=== PATIENT | female | born 1960 | race Caucasian/White ===

== ENCOUNTER → 2023-04-23 08:27 | Outpatient (BNVA) | payer MEDICAID, SELFPAY | PROVIDERS: PCP Family Medicine; Referring Provider Family Medicine; Visit Provider Psychiatry & Neurology Neurology | DX: R55 Syncope and collapse (principal); R09.89 Other specified symptoms and signs involving the circulatory and respiratory systems; Z98.890 Other specified postprocedural states | CPT/HCPCS: 99203 ==

== ENCOUNTER → 2023-05-16 08:03 | Outpatient (BNVA) | payer MEDICAID, SELFPAY | PROVIDERS: PCP Family Medicine; Referring Provider Psychiatry & Neurology Neurology; Visit Provider Psychiatry & Neurology Neurology | DX: R55 Syncope and collapse (principal) | CPT/HCPCS: 95813 ==

== ENCOUNTER 2023-05-25 10:39 | Outpatient (CLI) | payer MEDICAID, SELFPAY ==
[2023-05-25 11:30] LABS: Basophils # 0.1 10^3/uL (0.0-0.1); Basophils % 0.7 %; Eosinophils # 0.2 10^3/uL (0.0-0.8); Eosinophils % 2.3 %; Hematocrit 51.1 % (37.0-47.0); Hemoglobin 16.8 g/dL (11.5-15.3); Lymphocytes # 2.9 10^3/uL (0.8-4.8); Lymphocytes % 40.3 %; Mean Corpuscular HGB Conc 32.9 g/dL (30.0-36.0); Mean Corpuscular Hemoglobin 30.8 pg (28.0-34.0); Mean Corpuscular Volume 93.6 fl (81-99); Mean Platelet Volume 9.1 fL (7.4-10.4); Monocytes # 0.6 10^3/uL (0.2-0.9); Monocytes % 7.6 %; Neutrophils # 3.54 10^3/uL (1.8-7.7); Nucleated Red Blood Cells % 0 %; Platelet Count 259 10^3/cmm (130-400); Red Blood Count 5.46 10^6/uL (4.1-5.3); Red Cell Distribution Width 13.2 % (12.1-15.1); White Blood Count 7.2 10^3/uL (4.0-10.0)
[2023-05-25 12:14] LABS: 25 Hydroxy Vitamin D 43 ng/mL (30-100); Alanine Aminotransferase 8 U/L (0-33); Albumin Level 4.3 g/dL (3.5-5.2); Alkaline Phosphatase 102 U/L (35-105); Anion Gap 13.5 (5-19); Aspartate Amino Transferase 19 U/L (0-32); Blood Urea Nitrogen 15 mg/dL (8-23); Calcium 10.4 mg/dL (8.5-10.5); Carbon Dioxide 30 mmol/L (22-29); Chloride 102 mmol/L (98-107); Globulin 2.7 g/dL (1.3-4.6); Glomerular Filtration Rate 100.6 mL/min (90-130); Glucose 102 mg/dL (65-115); Magnesium 1.8 mg/dL (1.7-2.3); Osmolality Calculated 293 mOsm/kg (285-295); Potassium 4.5 mmol/L (3.5-5.1); Sodium 141 mmol/L (136-145); Thyroid Stimulating Hormone 0.86 uIU/mL (0.27-4.20); Total Bilirubin 0.6 mg/dL (0.15-1.2)
[2023-05-25 12:37] LABS: T3 Free 3.3 PG/ML (2.0-4.4)
[2023-05-25 12:54] LABS: Valproic Acid Level 114.4 ug/mL (50-100)
[2023-05-25 13:30] LABS: Folate Level > 20.0 ng/mL (4.8-37.3)
[2023-05-29 11:09] LABS: Methylmalonic Acid 609 nmol/L (87-318)
[2023-06-01 14:59] LABS: Vitamin B6 Plasma 25.5 ng/mL (2.1-21.7)
[2023-06-01 20:38] LABS: Nicotinamide 31 ng/mL; Nicotinic Acid <20 ng/mL
[2023-07-25 16:27] LABS: Biotin (Vitamin B7) 1918.7
== END 2023-05-25 10:40 | disposition home or self-care (01) ==
PROVIDERS: PCP Family Medicine; Visit Provider Psychiatry & Neurology Neurology
DX: R09.89 Other specified symptoms and signs involving the circulatory and respiratory systems (principal); R29.6 Repeated falls; R40.0 Somnolence; R55 Syncope and collapse
CPT/HCPCS: 36415; 80053; 80164; 82306; 82746; 83735; 83921; 84207; 84439; 84443; 84481; 84591; 85025

== ENCOUNTER → 2023-05-29 14:18 | Outpatient (BNVA) | payer MEDICAID, SELFPAY | PROVIDERS: PCP Family Medicine; Visit Provider Internal Medicine Cardiovascular Disease | DX: R55 Syncope and collapse (principal); R40.0 Somnolence; R03.0 Elevated blood-pressure reading, without diagnosis of hypertension; F17.200 Nicotine dependence, unspecified, uncomplicated | CPT/HCPCS: 99204 ==

== ENCOUNTER 2023-06-14 11:10 | Outpatient (CLI) | payer MEDICAID, SELFPAY | END 2023-06-14 11:11 | disposition home or self-care (01) | LOC: RAD 11:12 | PROVIDERS: PCP Family Medicine; Visit Provider Specialist | DX: R55 Syncope and collapse (principal); R09.89 Other specified symptoms and signs involving the circulatory and respiratory systems; R40.0 Somnolence; R29.6 Repeated falls; R94.01 Abnormal electroencephalogram [EEG]; Z91.81 History of falling; Z98.890 Other specified postprocedural states | CPT/HCPCS: 36415; 80076; 80164; 82140; 85025; 95812; 95816; 99213 ==

== ENCOUNTER 2023-06-22 09:45 | Outpatient (CLI) | payer MEDICAID, SELFPAY ==
[2023-06-22 11:09] LABS: Valproic Acid Level 55.1 ug/mL (50-100)
[2023-06-26 11:54] LABS: Vitamin B6 Plasma 22.4 ng/mL (2.1-21.7)
== END 2023-06-22 09:46 | disposition home or self-care (01) ==
PROVIDERS: PCP Family Medicine; Visit Provider Psychiatry & Neurology Neurology
DX: R03.0 Elevated blood-pressure reading, without diagnosis of hypertension (principal); R09.89 Other specified symptoms and signs involving the circulatory and respiratory systems; R29.6 Repeated falls; R40.0 Somnolence; R55 Syncope and collapse; G40.219 Localization-related (focal) (partial) symptomatic epilepsy and epileptic syndromes with complex partial seizures, intractable, without status epilepticus
CPT/HCPCS: 36415; 80164; 84207

== ENCOUNTER 2023-07-19 10:52 | Outpatient (CLI) | payer MEDICAID, SELFPAY ==
--- NOTE | 2023-07-19 11:02 | MR_ITS ---
WS: [id number] MRI BRAIN WITH AND WITHOUT CONTRAST HISTORY: SEIZURES/SYNCOPE COLLAPSE COMPARISON: None available. TECHNIQUE: Multiplanar imaging performed through the brain with MultiHance 10 ml's IV. No acute infarcts are seen. Zacarias-white matter differentiation is well preserved. Volume loss and smal l vessel ischemic disease. No prior infarct. No lacunar infarcts. Mild bilateral hippocampal atrophy is symmetric. No susceptibility artifacts or prior lacunar infarcts. Ventricles and extra-axial spaces are normal. Clivus and pituitary gland are normal. Visualized posterior fossa and brainstem are also normal. Postcontrast images are negative for masses or vascular malformations. Dural venous sinuses are normal. Paranasal sinuses: Well aerated with no significant disease. Mastoid air cells: Normal. Calvarium and scalp: Normal. IMPRESSION: 1. Mild cerebral atrophy with mild bilateral hippocampal formation atrophy. 2. No acute diffusion abnormality and no enhancing mass. 3. Mild small vessel ischemic disease.
[2023-07-19] MEDS: gadobenate dimeglumine 20 mL vial IV (12:14)
== END 2023-07-19 10:53 | disposition home or self-care (01) ==
LOC: RAD 10:55
PROVIDERS: PCP Family Medicine; Visit Provider Specialist
DX: G40.909 Epilepsy, unspecified, not intractable, without status epilepticus (principal); R55 Syncope and collapse
CPT/HCPCS: 70553; A9577

== ENCOUNTER → 2023-08-09 11:53 | Outpatient (BNVA) | payer MEDICAID, SELFPAY | PROVIDERS: PCP Family Medicine; Visit Provider Psychiatry & Neurology Neurology | DX: G40.219 Localization-related (focal) (partial) symptomatic epilepsy and epileptic syndromes with complex partial seizures, intractable, without status epilepticus (principal); R55 Syncope and collapse | CPT/HCPCS: 99212 ==

== ENCOUNTER 2023-08-14 08:12 | Outpatient (CLI) | payer MEDICAID, SELFPAY ==
[2023-08-14 08:57] LABS: Ammonia 19 umol/L (11-51)
[2023-08-14 08:58] LABS: Valproic Acid Level 11.8 ug/mL (50-100)
== END 2023-08-14 08:13 | disposition home or self-care (01) ==
LOC: LAB 08:15
PROVIDERS: PCP Internal Medicine; Visit Provider Psychiatry & Neurology Neurology
DX: Z79.899 Other long term (current) drug therapy (principal)
CPT/HCPCS: 36415; 80164; 82140

== ENCOUNTER 2023-08-22 08:57 | Outpatient (CLI) | payer MEDICAID, SELFPAY ==
[2023-08-22 09:39] LABS: Valproic Acid Level 31.3 ug/mL (50-100)
== END 2023-08-22 08:58 | disposition home or self-care (01) ==
PROVIDERS: PCP Internal Medicine; Visit Provider Psychiatry & Neurology Neurology
DX: G40.219 Localization-related (focal) (partial) symptomatic epilepsy and epileptic syndromes with complex partial seizures, intractable, without status epilepticus (principal); R55 Syncope and collapse
CPT/HCPCS: 36415; 80164

== ENCOUNTER 2023-09-27 11:57 | Outpatient (CLI) | payer MEDICAID, SELFPAY ==
[2023-09-27 12:50] LABS: Valproic Acid Level 26.8 ug/mL (50-100)
== END 2023-09-27 11:58 | disposition home or self-care (01) ==
LOC: LAB 11:57
PROVIDERS: PCP Internal Medicine; Visit Provider Psychiatry & Neurology Neurology
DX: G40.219 Localization-related (focal) (partial) symptomatic epilepsy and epileptic syndromes with complex partial seizures, intractable, without status epilepticus (principal)
CPT/HCPCS: 80164

== ENCOUNTER → 2023-11-08 11:17 | Outpatient (BNVA) | payer MEDICAID, SELFPAY | PROVIDERS: PCP Internal Medicine; Visit Provider Psychiatry & Neurology Neurology | DX: G40.219 Localization-related (focal) (partial) symptomatic epilepsy and epileptic syndromes with complex partial seizures, intractable, without status epilepticus (principal); R55 Syncope and collapse; R94.01 Abnormal electroencephalogram [EEG] | CPT/HCPCS: 99212 ==

== ENCOUNTER 2023-11-26 08:40 | Outpatient (CLI) | payer MEDICAID, SELFPAY ==
[2023-11-29 13:14] LABS: Oxcarbazepine Metabolite 2.6 mcg/mL (8.0-35.0)
== END 2023-11-26 08:41 | disposition home or self-care (01) ==
LOC: LAB 08:40
PROVIDERS: PCP Internal Medicine; Visit Provider Psychiatry & Neurology Neurology
DX: R55 Syncope and collapse (principal); R29.6 Repeated falls
CPT/HCPCS: 36415; 80183

== ENCOUNTER 2023-12-11 10:32 | Outpatient (CLI) | payer MEDICAID, SELFPAY ==
[2023-12-14 16:19] LABS: Oxcarbazepine Metabolite 15.1 mcg/mL (8.0-35.0)
== END 2023-12-11 10:33 | disposition home or self-care (01) ==
LOC: LAB 10:35
PROVIDERS: PCP Internal Medicine; Visit Provider Psychiatry & Neurology Neurology
DX: G40.219 Localization-related (focal) (partial) symptomatic epilepsy and epileptic syndromes with complex partial seizures, intractable, without status epilepticus (principal); R55 Syncope and collapse; R03.0 Elevated blood-pressure reading, without diagnosis of hypertension
CPT/HCPCS: 36415; 80183; 99213

== ENCOUNTER 2024-02-28 08:53 | Emergency (ER) | payer MEDICAID, SELFPAY ==
--- NOTE | 2024-02-28 09:13 | XR_ITS ---
WS: [id number] XR cervical spine 3V* [id number] REASON FOR EXAM: trauma FINDINGS: Exaggerated lordosis of the cervical spine. No focal vertebral body abnormality. Normal odontoid. Mild narrowing of the intervertebral disc spaces C4-C7 with moderate anterior osteophytosis. No spondylolisthesis. Facet joints are in normal alignment. XR/XR cervical spine 3V* [id number] IMPRESSION: Significant degenerative spondylosis of the lower cervical spine. No acute abnormality identified.
--- NOTE | 2024-02-28 09:13 | CTR_ITS ---
PROCEDURE INFORMATION: Exam: CT Head Without Contrast Exam date and time: 02/28/2024 9:46 AM Age: 63 years old Clinical indication: Injury or trauma; Blunt trauma (contusions or hematomas); Without loss of consciousness; Injury details: Fall x today hitting posterior head TECHNIQUE: Imaging protocol: Computed tomography of the head without contrast. Radiation optimization: All CT scans at this facility use at least one of these dose optimization techniques: automated exposure control; mA and/or kV adjustment per patient size (includes targeted exams where dose is matched to clinical indication); or iterative reconstruction. COMPARISON: MR head wo/w con [id number] 07/19/2023 11:23 AM RADIATION DOSE METRICS: Total DLP (mGy-cm): 1060.8 FINDINGS: Brain: Normal. No hemorrhage. Unremarkable white matter. No mass effect or acute infarct. Cerebral ventricles: No ventriculomegaly. No midline shift. Paranasal sinuses: Visualized sinuses are unremarkable. No fluid levels. Mastoid air cells: Visualized mastoid air cells are well aerated. Bones: See Soft tissues finding. Soft tissues: There is a scalp hematoma in the left parieto-occipital area but there is no evidence of underlying skull fracture. CT/CT head wo con* [id number] IMPRESSION: Scalp hematoma. Normal brain and skull.
[2024-02-28 09:17] VITALS: BP 131/81; PULSE 88; RESP 18; TEMP 36.6; O2SAT 90; BMI 19.9
[2024-02-28 09:29] VITALS: BP 161/79; PULSE 88; O2SAT 93
[2024-02-28 09:50] LABS: Basophils # 0.1 10^3/uL (0.0-0.1); Basophils % 0.5 %; Eosinophils # 0.2 10^3/uL (0.0-0.8); Eosinophils % 1.9 %; Hematocrit 52.1 % (36-47); Lymphocytes # 1.7 10^3/uL (0.8-4.8); Lymphocytes % 18.7 %; Mean Corpuscular Hemoglobin 32.4 pg (27-33); Mean Corpuscular Volume 98.1 fl (85-98); Mean Platelet Volume 8.1 fL (7.4-10.4); Monocytes # 0.7 10^3/uL (0.2-0.9); Monocytes % 7.2 %; Neutrophils # 6.59 10^3/uL (1.8-7.7); Neutrophils % 71.4 %; Nucleated Red Blood Cells % 0 %; Platelet Count 249 10^3/cmm (157-399); Red Blood Count 5.31 10^6/uL (3.85-5.65); Red Cell Distribution Width 12.9 % (12.1-15.1); White Blood Count 9.25 10^3/uL (3.29-11.43)
[2024-02-28 10:07] LABS: Alanine Aminotransferase 14 U/L (0-33); Albumin Level 3.8 g/dL (3.5-5.2); Alkaline Phosphatase 126 U/L (35-105); Anion Gap 11.2 (5-19); Aspartate Amino Transferase 21 U/L (0-32); Blood Urea Nitrogen 10 mg/dL (8-23); Calcium 9.5 mg/dL (8.5-10.5); Carbon Dioxide 32 mmol/L (22-29); Chloride 99 mmol/L (98-107); Creatinine Clr Calc Pharmacy 68.4975; Globulin 3.5 g/dL (1.3-4.6); Glomerular Filtration Rate 100.6 mL/min (90-130); Glucose 110 mg/dL (65-115); Osmolality Calculated 286 mOsm/kg (285-295); Potassium 4.2 mmol/L (3.5-5.1); Sodium 138 mmol/L (136-145); Total Bilirubin 0.4 mg/dL (0.15-1.2); Total Protein 7.3 g/dL (6.6-8.7)
--- NOTE | 2024-02-28 11:04 | ED_ITS ---
HPI - Fall 2 General: Chief Complaint: Fall Stated Complaint: fall, hit head Time Seen by Provider: 02/28/24 09:12 Source: patient Mode of arrival: ambulatory History of Present Illness: 63-year-old female presents emergency ro om after a fall at home. She is multiple falls in the past with history of COPD. At 1 point remotely she had an intracranial bleed. She is not on any anticoagulants. She has had multiple falls she seen neurology they did positive the potential that she may have seizures although she does not think that she does. Today was involved similar to what she has had before essentially she will has what sounds like a syncopal episode and collapse. She been seen for this multiple times before there is no loss of consciousness today she denies any nausea vomiting since this happened. complaint: fall Fall from: standing Fall witnessed: no Place fall occurred: home Loss of consciousness: None Prolonged down time: no Symptoms prior to fall: none Location of injury: head Associated symptoms-after fall: Denies abdominal pain, chest pain or neck pain Review of Systems 2 Const: Denies: fever(s) or chills Card: Denies: chest pain Resp: Denies: dyspnea GI: Denies: abdominal pain : Denies: dysuria, urinary frequency or urinary urgency Musc: Denies: neck pain or back pain Skin/Breast: Denies: rash PFSH ED 2 PFSH: Social History Smoking and tobacco/nicotine status: current every day tobacco/nicotine user Alcohol intake: never Substance/Drug Use: never Physical Exam 2 Const: COMMON NORMALS: no acute distress GENERAL APPEARANCE: cooperative and comfortable ORIENTATION/CONSCIOUSNESS: Yes awake, Yes oriented to person, Yes oriented to place and Yes oriented to time HENMT: COMMON NORMALS: normocephalic and hearing grossly normal bilaterally HEAD & SCALP: normocephalic OTHER: Scalp hematoma to the left of the midline the superior portion of the occiput. No skin breakdown ulceration or laceration no bleeding Resp: COMMON NORMALS: normal respiratory effort, No retractions, No use of accessory muscles and clear to auscultation bilaterally AUSCULTATION: clear to auscultation bilaterally Cardio: COMMON NORMALS: regular rate, regular rhythm and No murmurs present (Cardio) RATE: regular rate RHYTHM: regular rhythm GI: COMMON NORMALS: Soft to palpation and No hepatosplenomegaly present A USCULTATION: Yes normoactive bowel sounds PALPATION: Yes Soft to palpation, No Tenderness to palpation present (GI), No Guarding due to palpation present (GI) and Yes No hepatosplenomegaly present Extremity: COMMON NORMALS: normal to inspection, capillary refill normal, no clubbing, cyanosis or edema, no calf tenderness and no pedal edema Neuro: SENSORIUM/ORIENTATION: Yes oriented to person, Yes oriented to place and Yes oriented to time Skin: COMMON NORMALS: no rashes or lesions noted GENERAL SKIN EXAM: no rashes or lesions noted Course 2 Vital Signs: Vital signs: Vital Signs Temperature 97.9 F 02/28/24 09:17 Pulse Rate 88 02/28/24 09:29 Respiratory Rate 18 02/28/24 09:17 Blood Pressure 161/79 02/28/24 09:29 Pulse Oximetry 93 02/28/24 09:29 Oxygen Delivery Me thod Room Air 02/28/24 09:17 MDM - Fall Medical Decision Making Frequent falls. CT head and neck x-rays were negative. Discharge patient home labs reviewed. Medicated with 2 patient she had dozed off and her sats were in the 87 to 88% when she wakes she is alert oriented answers questions appropriately and her sat improved to the low 90s. Suspect that with her COPD she may have intermittent episodes with hypoxia with activity that may worsen her fall risk. Encouraged her to follow-up with primary care doctor to evaluate. Medical Records I reviewed the patient's medical records. Lab Data I reviewed the patient's lab results. 02/28/24 09:43 02/28/24 09:43 Radiology Impressions Cervical Spine X-Ray 02/28/24 09:13 IMPRESSION: Significant degenerative spondylosis of the lower cervical spine. No acute abnormality identified. Head CT 02/28/24 09:13 IMPRESSION: Scalp hematoma. Normal brain and skull. Laboratory Results WBC 9.25 10^3/uL (3.29-11.43) 02/28/24 09:43 RBC 5.31 10^6/uL (3.85-5.65) 02/28/24 09:43 Hgb 17.20 g/dL (11.27-16.99) H 02/28/24 09:43 Hct 52.1 % (36-47) H 02/28/24 09:43 MCV 98.1 fl (85-98) H 02/28/24 09:43 MCH 32.4 pg (27-33) 02/28/24 09:43 MCHC 33.0 g/dL (30-55) 02/28/24 09:43 RDW 12.9 % (12.1-15.1) 02/28/24 09:43 Plt Count 249 10^3/cmm (157-399) 02/28/24 09:43 MPV 8.1 fL (7.4-10.4) 02/28/24 09:43 Neut % (Auto) 71.4 % 02/28/24 09:43 Lymph % (Auto) 18.7 % 02/28/24 09:43 Buchanan % (Auto) 7.2 % 02/28/24 09:43 Eos % (Auto) 1.9 % 02/28/24 09:43 Baso % (Auto) 0.5 % 02/28/24 09:43 Neut # (Auto) 6.59 10^3/uL (1.8-7.7) 02/28/24 09:43 Lymph # (Auto) 1.7 10^3/uL (0.8-4.8) 02/28/24 09:43 Buchanan # (Auto) 0.7 10^3/uL (0.2-0.9) 02/28/24 09:43 Eos # (Auto) 0.2 10^3/uL (0.0-0.8) 02/28/24 09:43 Baso # (Auto) 0.1 10^3/uL (0.0-0.1) 02/28/24 09:43 Nucleated RBC % (auto) 0 % 02/28/24 09:43 Nucleated RBCs # 0.0 /100WBC 02/28/24 09:43 Sodium 138 mmol/L (136-145) 02/28/24 09:43 Potassium 4.2 mmol/L (3.5-5.1) 02/28/24 09:43 Chloride 99 mmol/L (98-107) 02/28/24 09:43 Carbon Dioxide 32 mmol/L (22-29) H 02/28/24 09:43 Anion Gap 11.2 (5-19) 02/28/24 09:43 BUN 10 mg/dL (8-23) 02/28/24 09:43 Creatinine 0.6 mg/dL (0.5-0.9) 02/28/24 09:43 GFR Calculation 100.6 mL/min (90-130) 02/28/24 09:43 Glucose 110 mg/dL (65-115) 02/28/24 09:43 Calculated Osmolality 286 mOsm/kg (285-295) 02/28/24 09:43 Calcium 9.5 mg/dL (8.5-10.5) 02/28/24 09:43 Total Bilirubin 0.4 mg/dL (0.15-1.2) 02/28/24 09:43 AST 21 U/L (0-32) 02/28/24 09:43 ALT 14 U/L (0-33) 02/28/24 09:43 Alkaline Phosphatase 126 U/L (35-105) H 02/28/24 09:43 Total Protein 7.3 g/dL (6.6-8.7) 02/28/24 09:43 Albumin 3.8 g/dL (3.5-5.2) 02/28/24 09:43 Globulin 3.5 g/dL (1.3-4.6) 02/28/24 09:43 All radiology interpretation(s) finalized by discharge Discharge Plan Discharge Patient Disposition: Home Clinical Impression: Falling episodes, Daytime sleepiness, Closed head injury Condition: Stable Prescriptions: No Action duloxetine 60 mg capsule,delayed release(DR/EC) 60 mg PO BID terbinafine HCl 250 mg tablet 250 mg PO DAILY cyanocobalamin (vitamin B-12) 1,000 mcg/mL solution 1,000 mcg IM .monthly Qty: 10 6RF Rx Instructions: ON THE celecoxib 400 mg capsule 400 mg PO DAILY armodafinil 50 mg tablet 50 mg PO QAM buprenorphine-naloxone 8-2 mg film 1 film sublingual TID PRN (Reason: UNKNOWN) 28 mg iron- 800 mcg Tablet 1 tab PO DAILY Oxtellar XR 150 mg tablet extended release 24 hr 450 mg PO BEDTIME Discharge Orders: Discharge ED (Routine); Ordered 02/28/24 Ordered By: Kendrick Castellon Referrals: Edil Kerr MD [Primary Care Provider] - Discharge Diet: Usual diet Discharge Activity: Increase activity as tolerated Patient Instructions: Opioid Safety, Pain Management Activity Restrictions/Additional Instructions: Thank you for choosing [facility] for your healthcare needs today. Please realize this is an emergency room and that we are providing you with a medical screening exam and this may not be complete and all inclusive of all the testing and or work up that you may need to determine your ailment or severity of your illness. It is very important that you follow up as instructed or that you return to the Emergency Department should you have concerns or if your condition changes or worsens in any way. Follow-up with your doctor in the office you may need to be evaluated for long- term oxygen use due to COPD. Coding Level of Care Code ED Business Planning Manager for Domenic Murphy
== END 2024-02-28 11:29 | disposition home or self-care (01) ==
PROVIDERS: Emergency Provider Family Medicine; PCP Internal Medicine
DX: S00.03XA Contusion of scalp, initial encounter (principal); G47.8 Other sleep disorders; R29.6 Repeated falls; Z72.0 Tobacco use; J44.9 Chronic obstructive pulmonary disease, unspecified; W19.XXXA Unspecified fall, initial encounter
CPT/HCPCS: 36415; 70450; 72040; 80053; 85025; 99284

== ENCOUNTER → 2024-04-10 11:06 | Outpatient (BNVA) | payer MEDICARE, MEDICAID, SELFPAY | PROVIDERS: PCP Internal Medicine; Visit Provider Psychiatry & Neurology Neurology | DX: G40.219 Localization-related (focal) (partial) symptomatic epilepsy and epileptic syndromes with complex partial seizures, intractable, without status epilepticus (principal); R94.01 Abnormal electroencephalogram [EEG]; Z87.442 Personal history of urinary calculi; F17.210 Nicotine dependence, cigarettes, uncomplicated; F32.A Depression, unspecified; R40.0 Somnolence | CPT/HCPCS: 99212 ==

== ENCOUNTER → 2024-06-19 09:15 | Outpatient (BNVA) | payer MEDICARE, MEDICAID, SELFPAY | PROVIDERS: PCP Internal Medicine; Visit Provider Psychiatry & Neurology Neurology | DX: R55 Syncope and collapse (principal); R94.01 Abnormal electroencephalogram [EEG]; G40.219 Localization-related (focal) (partial) symptomatic epilepsy and epileptic syndromes with complex partial seizures, intractable, without status epilepticus; Z87.442 Personal history of urinary calculi; F32.A Depression, unspecified; R29.6 Repeated falls; J44.9 Chronic obstructive pulmonary disease, unspecified; F17.200 Nicotine dependence, unspecified, uncomplicated; Z98.890 Other specified postprocedural states; R09.89 Other specified symptoms and signs involving the circulatory and respiratory systems | CPT/HCPCS: 95812; 99212; 99213 ==

== ENCOUNTER 2024-09-18 06:30 | Outpatient (CLI) | payer MEDICARE, MEDICAID, SELFPAY | END 2024-09-18 06:31 | LOC: SOT 09-19 07:41 | PROVIDERS: Visit Provider Orthopaedic Surgery | DX: Z46.89 Encounter for fitting and adjustment of other specified devices (principal); S62.102D Fracture of unspecified carpal bone, left wrist, subsequent encounter for fracture with routine healing; X58.XXXD Exposure to other specified factors, subsequent encounter | CPT/HCPCS: 99203; L3984 ==

== ENCOUNTER → 2024-09-18 15:01 | Outpatient (BNVA) | payer MEDICARE, MEDICAID, SELFPAY | PROVIDERS: PCP Internal Medicine; Visit Provider Orthopaedic Surgery | DX: S62.102A Fracture of unspecified carpal bone, left wrist, initial encounter for closed fracture (principal); X58.XXXA Exposure to other specified factors, initial encounter | CPT/HCPCS: 73110 ==

== ENCOUNTER → 2025-03-04 12:31 | Outpatient (BNVA) | payer MEDICARE, MEDICAID, SELFPAY | PROVIDERS: PCP Internal Medicine; Visit Provider Internal Medicine Cardiovascular Disease | DX: R55 Syncope and collapse (principal); R03.0 Elevated blood-pressure reading, without diagnosis of hypertension; R40.0 Somnolence; R01.1 Cardiac murmur, unspecified; R07.9 Chest pain, unspecified | CPT/HCPCS: 93005; 99214 ==

== ENCOUNTER 2025-04-28 13:48 | Outpatient (CLI) | payer OTHER, MEDICAID, SELFPAY ==
--- NOTE | 2025-04-28 13:58 | XR_ITS ---
WS: [id number] SCREENING DEXA SCAN Ampulse CLINICAL INFORMATION: ASYMPTOMATIC MENOPAUSAL STATE COMPARISON: None. FINDINGS: The L1-L4 bone mineral density measures 0.952 g/cm2. This corresponds to a T score score of -1.9 and Z score of 0.5. Left femoral neck bone mineral density measures 0.680 g/cm2. This corresponds to a T score of -2.6 and Z score of -0.8. Right femoral neck bone mineral density measures 0.715 g/cm2. This corresponds to a T score -2.3of and Z score of -0.5. Mean femoral neck bone mineral density measures 0.698 g/cm2. This corresponds to a T score of -2.5 and Z score of -0.6. XR/XR DEXA axial skeleton* [id number] IMPRESSION: Osteopenia lumbar spine. Osteoporosis femoral necks. Patient's FRAX calculated 10 year probability for major osteoporotic fracture i s 12.9% and osteoporotic hip fracture is 4.9%.
== END 2025-04-28 13:49 | disposition home or self-care (01) ==
LOC: RAD 13:50
PROVIDERS: PCP Internal Medicine; Visit Provider Internal Medicine
DX: Z78.0 Asymptomatic menopausal state (principal); M85.88 Other specified disorders of bone density and structure, other site; M81.0 Age-related osteoporosis without current pathological fracture
CPT/HCPCS: 77080

== ENCOUNTER 2025-05-20 12:02 | Outpatient (CLI) | payer OTHER, MEDICAID, SELFPAY ==
--- NOTE | 2025-05-20 12:00 | USCV_ITS ---
Rahda Almaraz Age: 65 Gender: F : 1960 Exam Date: 05/20/2025 12:16 Ordering Phys: Apolinar Munroe MD ([email or web address]) Technologist: ARMANDO Exam Location: [facility] [place] Indication: SoB BP: 165 / 86 HR: 79 Rhythm: Sinus Technical Quality: Adequate MEASUREMENTS (Male / Female) Normal Values 2D ECHO LV Diastolic Diameter PLAX 4.2 cm 4.2 - 5.9 / 3.9 - 5.3 cm IVS Diastolic Thickness 0.6 cm 0.6 - 1.0 / 0.6 - 0.9 cm IVS Systolic Thickness 1.4 cm LVPW Diastolic Thickness 1.1 cm 0.6 - 1.0 / 0.6 - 0.9 cm LVPW Systolic Thickness 1.6 cm LVOT Diameter 2.0 cm LV Ejection Fraction 2D Teich 61.7 % LV Ejection Fraction MOD 4C 55.5 % LV Ejection Fraction MOD 2C 63.0 % LV Ejection Fraction 2C AL 67.1 % LA Diameter 2.3 cm RA Systolic Volume 4C AL 26.1 ml RA Systolic Volume 4C MOD 25.5 ml LA Sys Volume AL 42.6 cm cubed LA Sys Volume Index AL 33.0 cm cubed/m squared Aorta at Sinotubular Diameter 2.9 cm IVC Diameter 1.6 cm M-MODE LA Ao Ratio MM 1.2 AV Cusp Separation MM 1.1 cm DOPPLER AV Peak Velocity 148.0 cm/s LVOT Peak Velocity 82.0 cm/s AV Area Cont Eq vti 2.0 cm squared AV Area Cont Eq pk 1.7 cm squared MV Peak Velocity 111.0 cm/s MV Area PHT 4.7 cm squared Mitral E to A Ratio 0.9 TR Peak Velocity 88.0 cm/s TR Peak Gradient 3.1 mmHg TV Peak E Velocity 56.0 cm/s PV Peak Velocity 98.0 cm/s FINDINGS Left Ventricle Normal left ventricular size, systolic function, and wall thickness. Ejection fraction 61%. Stage I left ventricular diastolic dysfunction-normal for patient's age. Right Ventricle Normal right ventricular size and systolic function Right Atrium Normal right atrial size Left Atrium Normal left atrial size Mitral Valve Normal structure and function of the mitral valve. Aortic Valve Aortic valve not well-visualized but probably is tricuspid. Mild aortic valve regurgitation. No aortic valve stenosis. Tricuspid Valve Normal structure and function of the tricuspid valve with no significant regurgitation. Normal pulmonary artery systolic pressure. Pulmonic Valve Mild pulmonic valve regurgitation. No pulmonic valve stenosis Pericardium Normal pericardium without effusion. Aorta Normal aortic root and ascending aorta size. IVC Normal IVC size. CONCLUSIONS 1. Normal left ventricular and right ventricular size and systolic function 2. Mild aortic valve regurgitation Beto Ronquillo (Electronically Signed) Final Date: 22 May 2025 14:25 S
== END 2025-05-20 12:03 | disposition home or self-care (01) ==
LOC: RAD 12:03
PROVIDERS: PCP Internal Medicine; Visit Provider Internal Medicine Cardiovascular Disease
DX: R06.02 Shortness of breath (principal); R93.1 Abnormal findings on diagnostic imaging of heart and coronary circulation; I35.1 Nonrheumatic aortic (valve) insufficiency; I37.1 Nonrheumatic pulmonary valve insufficiency
CPT/HCPCS: 93306

== ENCOUNTER 2025-06-18 12:52 | Outpatient (CLI) | payer OTHER, MEDICAID, SELFPAY ==
--- NOTE | 2025-06-18 | MM_ITS ---
WS: [id number] LEFT 3D TOMOSYNTHESIS DIGITAL MAMMOGRAPHY WITH CAD CLINICAL INFORMATION: HISTORY OF BREAST CANCER HISTORY: History of RIGHT mastectomy COMPARISON: None. TECHNIQUE: 3 views of the left breast were obtained. FINDINGS: Scattered fibroglandular densities of the left breast. Lucent centered calcifications LEFT breast. No suspicious focal mass, asymmetry, calcifications, or architectural distortion. No evidence of malignancy. MM/MM diag LT tomosynthesis [id number] IMPRESSION: DENSITY: There are scattered areas of fibroglandular density. BI-RADS: 2 - Benign. FOLLOW UP: 1 Year Follow-up Recommend return to annual diagnostic mammography.
== END 2025-06-18 12:53 | disposition home or self-care (01) ==
PROVIDERS: PCP Internal Medicine; Visit Provider Internal Medicine
DX: Z85.3 Personal history of malignant neoplasm of breast (principal); R92.1 Mammographic calcification found on diagnostic imaging of breast; R92.322 Mammographic fibroglandular density, left breast
CPT/HCPCS: 77061; 77062; G0279